=== PATIENT | male | born 1985 | race Caucasian/White ===

== ENCOUNTER 2017-02-17 13:51 | Emergency (ER) | payer OTHER ==
[~2017-02-17] VITALS: Ht 188 cm; Wt 49.9 kg
[~2017-02-17 13:51] MED LIST: CIPRO500 MG PO; FLAGYL500 MG PO; PROBIOTIC1 EAC1 PO
[2017-02-17] MEDS ORDERED: NORCO 5-325 TA1 EACH PO ×2 (15:54→16:03)
[2017-02-17] MEDS ORDERED: BACTRIM DS TAB1 EACH PO (16:02)
[2017-02-17 16:32] VITALS: BP 117/71
== END 2017-02-17 16:05 | disposition home or self-care (01) ==
LOC: ER 13:51
DX: L02.31 Cutaneous abscess of buttock (principal); F17.210 Nicotine dependence, cigarettes, uncomplicated; F10.99 Alcohol use, unspecified with unspecified alcohol-induced disorder; F12.10 Cannabis abuse, uncomplicated

== ENCOUNTER 2017-09-12 13:40 | Emergency (ER) | payer OTHER ==
[~2017-09-12] VITALS: Ht 188 cm; Wt 77.1 kg
[~2017-09-12 13:40] MED LIST changes: +BACTRIM DS TAB1 EACH PO; +NORCO 5-325 TA1 EACH PO
[2017-09-12] MEDS ORDERED: NORCO 5-325 TA1 EACH PO (14:25)
[2017-09-12] MEDS ORDERED: DOXYCYCLINE 10100 MG PO (14:25)
[2018-04-12] MEDS ORDERED: NORCO 5-325 TA1 EACH PO (16:42)
[2018-04-12] MEDS ORDERED: IBUPROFEN 600600 M1 PO (16:43)
== END 2017-09-12 15:17 | disposition home or self-care (01) ==
LOC: ER 13:40
DX: S41.151A Open bite of right upper arm, initial encounter (principal); L03.113 Cellulitis of right upper limb; F10.99 Alcohol use, unspecified with unspecified alcohol-induced disorder; F17.210 Nicotine dependence, cigarettes, uncomplicated; W59.11XA Bitten by nonvenomous snake, initial encounter; Y93.89 Activity, other specified; Y92.89 Other specified places as the place of occurrence of the external cause; Y99.8 Other external cause status

== ENCOUNTER 2018-09-12 20:44 | Emergency (ER) | payer OTHER ==
[~2018-09-12] VITALS: Ht 185.4 cm; Wt 79.4 kg
[~2018-09-12 20:44] MED LIST changes: +DOXYCYCLINE 10100 MG PO; +IBUPROFEN 600600 M1 PO
[2018-09-12 20:48] VITALS: BP 121/78
[2018-09-12] MEDS ORDERED: IBUPROFEN 600600 M1 PO (21:24)
== END 2018-09-12 21:40 | disposition home or self-care (01) ==
LOC: ER 20:44
DX: S69.82XA Other specified injuries of left wrist, hand and finger(s), initial encounter (principal); F17.210 Nicotine dependence, cigarettes, uncomplicated; W00.0XXA Fall on same level due to ice and snow, initial encounter; Y93.89 Activity, other specified; Y92.89 Other specified places as the place of occurrence of the external cause; Y99.8 Other external cause status

== ENCOUNTER 2021-01-15 11:42 | Emergency (ER) | payer OTHER ==
[~2021-01-15] VITALS: Ht 185.4 cm; Wt 81.7 kg
[2021-01-15 11:55] VITALS: BP 114/81
[2021-01-15] MEDS ORDERED: NORCO 10-325 T1 EACH PO (12:26)
== END 2021-01-15 12:52 | disposition home or self-care (01) ==
LOC: ER 11:42
DX: M65.341 Trigger finger, right ring finger (principal); F17.210 Nicotine dependence, cigarettes, uncomplicated